=== PATIENT | male | born 1980 | race Caucasian/White ===

== ENCOUNTER 2022-11-27 07:43 | Outpatient (RCR) | payer OTHER, SELFPAY | END 2022-11-27 09:24 | disposition home or self-care (01) | LOC: HO.OT 07:43 | PROVIDERS: PCP Internal Medicine; Visit Provider Student in an Organized Health Care Education/Training Program | DX: Z96.692 Finger-joint replacement of left hand (principal) | CPT/HCPCS: 29130; 97165; 97760 ==